=== PATIENT | female | born 1950 | race Caucasian/White ===

== ENCOUNTER 2018-02-13 10:27 | Outpatient (CLI) | payer MEDICARE ==
--- NOTE | 2018-02-13 12:00 | ULT ---
SONOGRAM ABDOMEN COMPLETE: HISTORY: Upper abdomen pain. FINDINGS: Gallbladder has a normal appearance without evidence of stones. The common duct is 0.3 cm. Liver is unremarkable without focal mass or intrahepatic biliary dilatation. No free fluid. The spleen, kid neys, and visualized portions of the abdominal aorta, IVC, and pancreas are unremarkable. IMPRESSION: No significant abnormalities are demonstrated. POS: [facility]
== END 2018-02-13 10:28 | disposition home or self-care (01) ==
LOC: NAV ULT 10:27
PROVIDERS: ATTEND Family Medicine
DX: R10.9 Unspecified abdominal pain (principal)
CPT/HCPCS: 76700